=== PATIENT | female | born 1940 | race African-American/Black ===

== ENCOUNTER 2016-06-30 19:20 | Inpatient (IN) | payer MEDICARE, MEDICAID ==
[~2016-06-30] VITALS: Ht 175.3 cm; Wt 104.3 kg
[~2016-06-30 19:20] MED LIST: BENAZEPRIL HCL10 MG ORAL; COUMADIN1 MG ORAL; LYRICA25 MG ORAL; NORCO 5-325 TA1 EAC1 ORAL; NORCO 5-325 TA1 EACH ORAL; PLAVIX75 MG ORAL
[2016-06-30 20:05] VITALS: BP 170/79
--- NOTE | 2016-06-30 21:22 | Emergency Room Report ---
History of Present Illness General Chief Complaint: Generalized Weakness Source: Patient, EMS (GILES EUBANKS M.D.) Present Illness HPI 76 YO F with weakness and fall after left knee buckled. Contrary to multigrapher note, no direct trauma to left knee or shoulder. Patient endorses remote history of fall and right shoulder dislocation but denies direct trauma to either shoulder today. Denies associated/precipitating chest pain, SOB, palpitations, abd pain. Denies recent fever/chills, cough. History of HTN. Denies history of DVT/PE. Denies leg pain/swelling. (GILES EUBANKS M.D.) Allergies: Coded Allergies: NO KNOWN ALLERGIES (Unverified Allergy, Unknown, 04/20/15) Patient History Past Medical History: HTN Past Surgical History: none Pertinent Family History: none Social History: Denies: alcohol use, drug use, smoking Now: No Immunizations: UTD Reviewed Nursing Documentation: PMH: Agreed, PSxH: Agreed (GILES EUBANKS M.D.) Nursing Documentation-PMH Hx Cardiac Problems: Yes - Mild heart attack Hx Hypertension: Yes Hx Cancer: Yes - breast Hx Seizures: Yes (GILES EUBANKS M.D.) Review of Systems All Other Systems: negative except mentioned in HPI (GILES EUBANKS M.D.) Physical Exam Vital Signs Date Time Temp Pulse Resp B/P Pulse Ox O2 Delivery O2 Flow Rate FiO2 06/30/16 19:13 97.5 74 16 139/67 96 Room Air Sp02 EP Interpretation: reviewed, normal General Appearance: normal inspection, well appearing, no apparent distress, alert, GCS 15, non-toxic, obese Head: normocephalic, atraumatic Eyes: bilateral eye EOMI, bilateral eye PERRL ENT: normal ENT inspection, hearing grossly normal, normal voice Neck: normal inspection, full range of motion, supple, no bony tend Respiratory: normal inspection, lungs clear, normal breath sounds, no respiratory distress, no retraction, no wheezing Cardiovascular #1: regular rate, rhythm, no edema Gastrointestinal: normal inspection, normal bowel sounds, non tender, soft, no guarding, no hernia Genitourinary: no CVA tenderness Musculoskeletal: normal inspection, back normal, normal range of motion, non- tender, no calf tenderness, pelvis stable, Val's Sign negative Neurologic: normal inspection, alert, oriented x3, responsive, 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 I attest that this information is true, accurate and complete to the best of my knowledge. I understand that any falsification, omission, or concealment of material fact may subject me to administrative, civil, or criminal liability. This patient warrants hospital admission for extreme of age and has a condition that cannot be treated as outpatient. (GILES EUBANKS M.D.) Diagnostic Impression: Primary Impression: Episode of generalized weakness Additional Impressions: Contusion of left knee Contusion of right shoulder ER Course 76 YO F with weakness, left knee buckling. Atraumatic. VSS. Afebrile. EKG is 1st degree AV block CXR unremarkable for infection No reason for acute imaging at this time as patient did not suffer from acute trauma Labs: Endorsed to Dr Lee for med/surg admission at 922pm (GILES EUBANKS M.D.) ER Course Please see note from Dr. Eubanks. c/o pain L knee and R shoulder when fell. + swelling and tenderness both with decreased ROM. Xrays ordered. Medially possible fx knee. DJD shoulder. Immobilizer ordered. Immobilizer place by tech as well as sling. Improved and neurovasc checked by me. (Zen Christensen M.D.) EKG Diagnostic Results Rate: other - 1st degree AV block (GILES EUBANKS M.D.) Rhythm Strip Diag. Results EP Interpretation: yes Rate: 73 Rhythm: NSR, no PVC's, no ectopy (GILES EUBANKS M.D.) Chest X-Ray Diagnostic Results EP Interpretation: Yes Findings: no consolidation, no effusion, no pneumothorax, other - + cardiomegaly Number of Views: 1 (GILES EUBANKS M.D.) Other X-Ray Diagnostic Results Other X-Ray Diagnostic Results #1: X-Ray Ordered: L knee EP Interpretation: Yes Findings: no dislocation, other - possible medial fracture DJD Number of Views: 3 Other X-Ray Diagnostic Results #2: X-Ray Ordered: R shoulder EP Interpretation: Yes Findings: no fractures, no dislocation, no soft tissue swelling, other - DJD Number of Views: 3 (Zen Christensen M.D.) Last Vital Signs Date Time Temp Pulse Resp B/P Pulse Ox O2 Delivery O2 Flow Rate FiO2 06/30/16 20:05 97.6 73 13 170/79 100 Room Air Status: improved (GILES EUBANKS M.D.) Status: improved (Zen Christensen M.D.) Disposition: ADMITTED INPATIENT Condition: Serious Referrals: NOT CHOSEN IPA/,REFERRING (PCP) GILES EUBANKS M.D. Jun 30, 2016 21:22 Zen Christensen M.D. Jun 30, 2016 22:47
[2016-06-30] MEDS ORDERED: Mylanta II UD 30ml ORAL PRN (22:00)
[2016-06-30] MEDS ORDERED: LORazepam Inj 2mg/ml 1ml IV PRN (22:00)
[2016-06-30] MEDS ORDERED: DuoNeb 0.5-3(2.5)mg/3ml neb HHN PRN (22:00)
[2016-06-30] MEDS ORDERED: Miralax 17gm pkt ORAL PRN (22:00)
[2016-06-30] MEDS ORDERED: Nitroglycerin Subl 0.4mg tab (Bottle Of 25) SL PRN (22:00)
[2016-06-30 22:23] LABS: ALANINE AMINOTRANSFERASE 29 U/L (3-33); ALBUMIN/GLOBULIN RATIO 1.1 (1.0-2.7); ANION GAP 13 (5-15); ASPARTATE AMINO TRANSFERASE 41 U/L (5-40); CALCIUM 10.4 mg/dL (8.6-10.2); CARBON DIOXIDE 32 mEQ/L (20-30); CHLORIDE 86 mEQ/L (98-107); CREATININE 1.7 mg/dL (0.5-0.9); HEMOLYSIS 53; POTASSIUM 4.9 mEQ/L (3.4-4.9); SODIUM 131 mEQ/L (135-145); TOTAL PROTEIN 8.3 g/dL (6.6-8.7); TROPONIN I < 0.30 ng/mL (<=0.30)
[2016-06-30 22:33] LABS: CKMB 2.1 ng/mL (< 3.8)
[2016-06-30] MEDS ORDERED: Morphine Sulfate 2mg/ml Inj IVP ONE (22:45)
[2016-06-30 23:06] VITALS: BP 140/98
[2016-06-30 23:40] LABS: BASOPHILS % (AUTO) 1.1 % (0.0-2.0); EOSINOPHILS % (AUTO) 3.4 % (0.0-3.0); LYMPHOCYTES % (AUTO) 44.5 % (20.0-45.0); MEAN CORPUSCULAR HEMOGLOBIN 32.4 PG (27.0-31.0); MEAN CORPUSCULAR HGB CONC 32.4 G/DL (32.0-36.0); MEAN CORPUSCULAR VOLUME 100 FL (80-99); MEAN PLATELET VOLUME 6.3 FL (6.5-10.1); MONOCYTES % (AUTO) 9.2 % (1.0-10.0); NEUTROPHILS % (AUTO) 41.8 % (45.0-75.0); PLATELET COUNT 187 K/UL (150-450); RED BLOOD COUNT 3.85 M/UL (4.20-5.40); WHITE BLOOD COUNT 5.3 K/UL (4.8-10.8)
[2016-07-01] VITALS (8 sets, daily range): BP systolic 108–146; BP diastolic 44–99
[2016-07-01] MEDS: Morphine Sulfate 2mg/ml Inj IVP PRN ×4 (03:13→20:33)
[2016-07-01] MEDS ORDERED: Morphine Sulfate 4mg/ml Inj IVP ONE (03:45)
[2016-07-01] MEDS: Norco 5mg/325mg tab ORAL PRN (06:53)
[2016-07-01] MEDS ORDERED: Benazepril 10mg tab ORAL SCH (09:00)
[2016-07-01] MEDS: Heparin 5000 units/ml inj SUBQ SCH ×2 (09:00→20:30)
[2016-07-01 11:08] LABS: INR 1.1 (0.9-1.1); PROTHROMBIN TIME 11.7 SEC (9.30-11.50)
[2016-07-01 11:09] LABS: ALANINE AMINOTRANSFERASE 28 U/L (3-33); ALBUMIN/GLOBULIN RATIO 0.9 (1.0-2.7); ANION GAP 13 (5-15); ASPARTATE AMINO TRANSFERASE 49 U/L (5-40); CALCIUM 9.8 mg/dL (8.6-10.2); CARBON DIOXIDE 30 mEQ/L (20-30); CHLORIDE 89 mEQ/L (98-107); CHOLESTEROL 175 mg/dL (< 200); CHOLESTEROL/HDL RATIO 2.6 (3.3-4.4); CREATININE 1.5 mg/dL (0.5-0.9); HEMOLYSIS 360; LDL CHOLESTEROL (CALC.) 67 mg/dL (60-99); POTASSIUM 5.8 mEQ/L (3.4-4.9); SODIUM 132 mEQ/L (135-145); TOTAL PROTEIN 7.3 g/dL (6.6-8.7)
[2016-07-01 11:46] LABS: BASOPHILS % (AUTO) 2.2 % (0.0-2.0); EOSINOPHILS % (AUTO) 3.4 % (0.0-3.0); LYMPHOCYTES % (AUTO) 38.4 % (20.0-45.0); MEAN CORPUSCULAR HEMOGLOBIN 33.2 PG (27.0-31.0); MEAN CORPUSCULAR HGB CONC 33.9 G/DL (32.0-36.0); MEAN CORPUSCULAR VOLUME 98 FL (80-99); MEAN PLATELET VOLUME 6.9 FL (6.5-10.1); MONOCYTES % (AUTO) 9.5 % (1.0-10.0); NEUTROPHILS % (AUTO) 46.5 % (45.0-75.0); PLATELET COUNT 177 K/UL (150-450); RED BLOOD COUNT 3.77 M/UL (4.20-5.40); RED CELL DISTRIBUTION WIDTH 11.8 % (11.6-14.8); WHITE BLOOD COUNT 3.9 K/UL (4.8-10.8)
--- NOTE | 2016-07-01 13:29 | Neurology Progress Note ---
Objective Physical Exam Last Vital Signs Date Time Temp Pulse Resp B/P Pulse Ox O2 Delivery O2 Flow Rate FiO2 07/01/16 11:24 97.9 64 18 145/79 96 Room Air Laboratory Tests Test 06/30/16 21:30 06/30/16 23:25 07/01/16 10:25 07/01/16 11:35 Sodium Level 131 mEQ/L (135-145) L 132 mEQ/L (135-145) L Potassium Level 4.9 mEQ/L (3.4-4.9) 5.8 mEQ/L (3.4-4.9) H Chloride Level 86 mEQ/L (98-107) L 89 mEQ/L (98-107) L Carbon Dioxide Level 32 mEQ/L (20-30) H 30 mEQ/L (20-30) Anion Gap 13 (5-15) 13 (5-15) Blood Urea Nitrogen 44 mg/dL (7-23) H 41 mg/dL (7-23) H Creatinine 1.7 mg/dL (0.5-0.9) H 1.5 mg/dL (0.5-0.9) H Estimat Glomerular Filtration Rate mL/min (>60) mL/min (>60) Glucose Level 96 mg/dL (74-106) 117 mg/dL (74-106) H Calcium Level 10.4 mg/dL (8.6-10.2) H 9.8 mg/dL (8.6-10.2) Total Bilirubin 0.4 mg/dL (0.0-1.2) 0.3 mg/dL (0.0-1.2) Aspartate Amino Transf (AST/SGOT) 41 U/L (5-40) H 49 U/L (5-40) H Alanine Aminotransferase (ALT/SGPT) 29 U/L (3-33) 28 U/L (3-33) Alkaline Phosphatase 126 U/L (35-104) H 106 U/L (35-104) H Total Creatine Kinase 115 U/L (26-140) Creatine Kinase MB 2.1 ng/mL (< 3.8) Creatine Kinase MB Relative Index 1.8 Troponin I < 0.30 ng/mL (<=0.30) Total Protein 8.3 g/dL (6.6-8.7) 7.3 g/dL (6.6-8.7) Albumin 4.5 g/dL (3.5-5.2) 3.5 g/dL (3.5-5.2) Globulin 3.8 g/dL 3.8 g/dL Albumin/Globulin Ratio 1.1 (1.0-2.7) 0.9 (1.0-2.7) L White Blood Count 5.3 K/UL (4.8-10.8) 3.9 K/UL (4.8-10.8) L Red Blood Count 3.85 M/UL (4.20-5.40) L 3.77 M/UL (4.20-5.40) L Hemoglobin 12.5 G/DL (12.0-16.0) 12.5 G/DL (12.0-16.0) Hematocrit 38.5 % (37.0-47.0) 37.0 % (37.0-47.0) Mean Corpuscular Volume 100 FL (80-99) H 98 FL (80-99) Mean Corpuscular Hemoglobin 32.4 PG (27.0-31.0) H 33.2 PG (27.0-31.0) H Mean Corpuscular Hemoglobin Concent 32.4 G/DL (32.0-36.0) 33.9 G/DL (32.0-36.0) Red Cell Distribution Width 12.0 % (11.6-14.8) 11.8 % (11.6-14.8) Platelet Count 187 K/UL (150-450) 177 K/UL (150-450) Mean Platelet Volume 6.3 FL (6.5-10.1) L 6.9 FL (6.5-10.1) Neutrophils (%) (Auto) 41.8 % (45.0-75.0) L 46.5 % (45.0-75.0) Lymphocytes (%) (Auto) 44.5 % (20.0-45.0) 38.4 % (20.0-45.0) Monocytes (%) (Auto) 9.2 % (1.0-10.0) 9.5 % (1.0-10.0) Eosinophils (%) (Auto) 3.4 % (0.0-3.0) H 3.4 % (0.0-3.0) H Basophils (%) (Auto) 1.1 % (0.0-2.0) 2.2 % (0.0-2.0) H Prothrombin Time 11.7 SEC (9.30-11.50) H Prothromb Time International Ratio 1.1 (0.9-1.1) Activated Partial Thromboplast Time 21 SEC (23-33) L Triglycerides Level 203 mg/dL (< 150) H Cholesterol Level 175 mg/dL (< 200) LDL Cholesterol 67 mg/dL (60-99) HDL Cholesterol 67 mg/dL (> 60) H Cholesterol/HDL Ratio 2.6 (3.3-4.4) L Thyroid Stimulating Hormone (TSH) 1.550 uIU/mL (0.300-4.500) Impression/Recommendations Problems: (1) recent onset R leg pain/weakness. r/o lumbar radiculopathy/lumbar-sacral plexopathy (2) r/o L knee fx (3) chronic generalised sz disorder (4) s/p multiple mechanical fall Status: not improved Recommendations #[id number] DENA KNUTSON Jul 01, 2016 13:29
--- NOTE | 2016-07-01 13:50 | Diagnostic Imaging Report ---
Indications: Chest pain Technique: Portable AP chest Findings: Comparison: 04/20/2015 Cardiac silhouette remains mildly enlarged. Pulmonary vasculature remains within normal limits. Lungs and pleura remain clear. Surgical clips again noted in left axilla.. IMPRESSION: No evidence of acute disease, unchanged Stable chronic changes as described
[2016-07-01] MEDS: Phenytoin 100mg cap ORAL SCH ×2 (14:22→20:29)
--- NOTE | 2016-07-01 14:34 | Diagnostic Imaging Report ---
Indications: Left knee injury, pain Technique: 3 views left knee. Findings: Comparison: None No fracture, dislocation, joint space widening or effusion , surrounding soft tissue swelling/foreign body/other abnormality, or other acute changes are identified. Curvilinear calcific density adjacent to distal femoral medial condyle. Osteophytes margins of patellofemoral and knee joint spaces. Lateral knee joint compartment narrowed. IMPRESSION: No evidence of acute injury. Matt-Stieda lesion Osteoarthritis
--- NOTE | 2016-07-01 14:40 | Diagnostic Imaging Report ---
Indications: Right shoulder trauma, pain Technique: 3 views right shoulder Findings: Comparison: 04/20/2015 Irregular lucency now traverses the base of the greater tuberosity of the right humeral head on 2 of 3 views. This was not seen previously. Suggestion of associated focal cortical discontinuity. No additional fracture, dislocation, joint space widening or other acute change identified. IMPRESSION: Suggestion of nondisplaced fracture through base of right humeral head greater tuberosity, apparently closed Findings discussed with Dr. Us, ER physician, by telephone at time of this dictation
--- NOTE | 2016-07-01 14:52 | Consultation ---
Consult Note Consult Note asked to eval for renal failure- 76 YO F with weakness and fall after left knee buckled. Contrary to research consultant note, no direct trauma to left knee or shoulder. Patient endorses remote history of fall and right shoulder dislocation but denies direct trauma to either shoulder today. Denies associated/precipitating chest pain, SOB, palpitations, abd pain. Denies recent fever/chills, cough. History of HTN. Denies history of DVT/PE. Denies leg pain/swelling. . Assessment/Plan Renal failure and hyperkalemia due to pre renal azotemia ? Lotesin induced HyperKalemia Hydrate- Stop Lotensin- Monitor renal parameters- Avoid Nephrotoxics- EDSON MOODY Jul 01, 2016 14:52
[2016-07-01] MEDS ORDERED: D5 1/2NS 1,000 ML IV SCH (15:00)
[2016-07-01] MEDS ORDERED: D5NS 1,000 ML IV SCH (15:30)
--- NOTE | 2016-07-01 19:55 | History & Physical ---
History and Physical History & Physicial Dictated for Int Med-Dr Lee no. [id number]. BECKI SALINAS Jul 01, 2016 19:55
--- NOTE | 2016-07-01 20:14 | Cardiology Report ---
APPROVED REPORT EKG Measurement Heart [id number] Sinus rhythm with 1st degree AV block Left axis deviation Abnormal ECG
--- NOTE | 2016-07-01 20:45 | Cardiology Report ---
APPROVED REPORT EXAM: Two-dimensional and M-mode echocardiogram with Doppler and color Doppler. INDICATION Left ventricular function M-Mode DIMENSIONS IVSd1.1 (0.7-1.1cm)Left Atrium (MM)3.9 (1.6-4.0cm) LVDd4.7 (3.5-5.6cm)Aortic Root3.0 (2.0-3.7cm) PWd1.1 (0.7-1.1cm)Aortic Cusp Exc.1.8 (1.5-2.0cm) LVDs3.2 (2.5-4.0cm) PWs1.1 cm Normal left ventricular chamber size, systolic function and wall motion. Left ventricular ejection fraction estimated to be 55-60%. No evidence of left ventricular hypertrophy. No evidence of pericardial fat or effusion. All other cardiac chamber sizes are within normal limits. Focal aortic valve sclerosis with adequate cusp excursion Thickened mitral valve leaflets with normal excursion. Mitral annulus and aortic root calcification. Pulmonic valve not well visualized. Normal tricuspid valve structure. IVC is normal in size with physiologic collapse. A color flow and spectral Doppler study was performed and revealed: No aortic regurgitation. Mild mitral regurgitation. Left ventricular diastolic dysfunction grade 1. Moderate tricuspid regurgitation. Tricuspid systolic velocities suggests peak right ventricular systolic pressure of 26 mmHg
--- NOTE | 2016-07-01 21:07 | Consultation ---
DATE OF CONSULTATION: 07/01/2016 NEUROLOGICAL CONSULTATION CONSULTING PHYSICIAN: Hernan Yanes M.D. REQUESTING PHYSICIAN: Joe Lee M.D. HISTORY OF PRESENT ILLNESS: The patient is a 76-year-old female, seen in neurological consultation to evaluate the recent onset of severe left lower extremity pain and weakness causing several falls. Prior to admission, the patient tripped and fell, she was unable to get up, and her son, who was witnessed called paramedics. On arrival, her vital signs were stable. Blood pressure 139/87, heart rate of 74, and respirations 16. The patient was found to be sitting in a chair, stating that she got weak and fell. She was fully alert. [facility] this facility. On arrival, the patient is complaining of weakness after her left knee buckled up. Her vital signs on admission were stable. EKG revealed first degree AV block. Chest x-ray was unremarkable except for presence of cardiomegaly. A prominent revascularization may represent mild congestive heart failure. There was a x-ray indicating anterior dislocation of the right shoulder, dates back to 2014. The patient is suspected to have fracture of left knee and left leg was placed in an immobilizer and right shoulder was placed in a sling. An x-ray of left knee revealed possible medial fracture and resultant degenerative joint disease. X-ray of the right shoulder revealed no fracture, no dislocation, and no soft tissue swelling. Following admission to present, the patient remained with the pain in the left lower extremity and in the right shoulder. PAST MEDICAL HISTORY: The patient has a history of chronic generalized seizure disorder for several years, with recurrence of two to three episodes per year while she is maintained on Dilantin. She has a history of coronary artery disease, had a mild heart attack, history of degenerative joint disease, tension headaches, history of hypoglycemic episode, and has a breast cancer with mastectomy on the left with no recurrence. MEDICATIONS: Treatment prior to admission included benazepril, Plavix, [place] p.r.n., Lyrica 25 mg t.i.d., and warfarin currently for deep vein thrombosis of the lower extremities. The patient is on Dilantin (the patient is unable to recall the dose). ALLERGIES: None reported. SOCIAL HISTORY: She lives at home with her son. Able to ambulate using cane. No alcohol. No drug abuse. Nonsmoker. REVIEW OF SYSTEMS: Weakness, aches, and pains in her left lower extremity predominantly proximal knee and thigh region, right shoulder pain, and unstable gait. Pain and weakness in the left lower extremity started three weeks ago and frequent falls occurred within the last three weeks. Denies headache. Denies chest pain or palpitations. No respiratory problems. No abdominal pain or discomfort. PHYSICAL EXAMINATION: GENERAL: A well-developed, moderately obese female, not in acute distress, lying comfortably in bed, and covered with few blankets. VITAL SIGNS: Her blood pressure was 145/79 and temperature 97.9 degrees. HEENT: Head normocephalic. No evidence of trauma. Eyes, ears, and throat are clear. NECK: Supple. No meningeal signs. EXTREMITIES: There is acute tenderness on palpation in the right shoulder, but also left knee and left hip. There is significant pain when attempting to lift left lower extremity, pain along the left leg. There is a brace on the left lower extremity and sling in the right shoulder. NEUROLOGIC: Peripheral pulses 1+ symmetric. MENTAL STATUS: The patient is alert and oriented x3 with no evidence of aphasia or apraxia. Speech is slow and quiet, but coherent. CRANIAL NERVE II: Pupils are both responding to light and accommodation. Extraocular movements intact. No nystagmus. CRANIAL NERVE V: Normal corneal responses. No facial asymmetry. CRANIAL NERVE VIII: Slight decreased hearing. CRANIAL NERVES IX THROUGH XII: Tongue is in midline. Symmetric palate elevation. MOTOR EXAMINATION: Motor examination revealed normal muscle tone. Strength distally in both upper extremities 5/5, but proximal on the right limited by the pain. Normal strength and muscle tone in the right lower extremity. The patient was unable to lift the left lower extremity due to pain and probably weakness. Her left foot dorsiflexion and extension 4/5. Deep tendon reflexes depressed bilaterally. Unable to completely test on the left leg due to pain. No pathological responses. SENSORY EXAMINATION: Reduced response to pin stimulation in the distal aspect of her left leg, inconsistent. Gait not tested. The patient was unable to sit or stand without assistance. IMPRESSION: 1. This is a 76-year-old female with a recent onset of pain and weakness along the left lower extremity, resulting in multiple mechanical falls. Rule out left-sided lumbar radiculopathy L4-L5 level. Rule out a mass or lesion in the abdomen and pelvis area with referred pain (history of breast cancer.) 2. Chronic generalized seizure disorder, well controlled. 3. Obesity. 4. Hypertension. 5. Arthralgia. 6. Status post right shoulder dislocation two years ago. 7. History of deep venous thrombosis of the lower extremities. RECOMMENDATION: 1. MRI of lumbosacral spine, if necessary we will add abdomen and pelvis CT scan to rule out mass or lesion. 2. Restart Dilantin 300 mg daily, the patient will clarify precise dose, we will check blood level of Dilantin for baseline. 3. Orthopedic assessment regarding possible left knee fracture. 4. Continue with the pain management and also get a PT and OT assessment. We will follow with you. Thank you for allowing me to see this interesting patient in neurological consultation. Hernan Yanes M.D. DR: KEATON JOB#: [id number] CC:
[2016-07-02] VITALS (7 sets, daily range): BP systolic 119–165; BP diastolic 59–81
--- NOTE | 2016-07-02 01:47 | History and Physical Report ---
DATE OF ADMISSION: 07/01/2016 CHIEF COMPLAINT: This is a 76-year-old female, presents with a chief complaint of mechanical fall. HISTORY OF PRESENT ILLNESS: The patient states that she got up to go to the restroom on 04/30/2016. The patient states her left knee gave out. The left knee buckled and she fell to the floor. The patient now complains of left knee pain and right shoulder pain. The patient presented to [facility]. The patient is admitted for weakness of bilateral lower extremities. REVIEW OF SYSTEMS: Constitutional: The patient denies weight loss or weight gain. The patient denies fevers or chills. HEENT: The patient denies ear or throat pain. Cardiovascular: The patient denies palpitations or chest pain. Chest: The patient denies wheeze or shortness of breath. Abdomen: The patient denies nausea, vomiting, diarrhea, or constipation. Genitourinary: The patient denies dysuria or increased frequency of urination. Neuromuscular: The patient denies seizures or generalized weakness. PAST MEDICAL HISTORY: Significant for: 1. Hypertension. 2. History of left breast cancer, status post mastectomy and chemotherapy. PAST SURGICAL HISTORY: Significant for: 1. Left mastectomy. 2. Appendectomy. CURRENT MEDICATIONS: 1. Benazepril 10 mg one tablet p.o. daily. 2. Plavix 75 mg one tablet p.o. daily. 3. [place] 5/325 mg one tablet p.o. q.4 hours p.r.n. 4. Lyrica 25 mg one tablet p.o. three times daily. 5. Coumadin 1 mg one tablet p.o. daily. ALLERGIES: No known drug allergies. SOCIAL HISTORY: The patient is and lives with her grandson. The patient denies tobacco or alcohol use. PHYSICAL EXAMINATION: VITAL SIGNS: Temperature is 96.7 degrees, pulse 74, respirations 18, and blood pressure 146/72. GENERAL: The patient is a well-developed and well-nourished, female, in no apparent distress. HEENT: Eyes, pupils are equal and responsive to light and accommodation. Extraocular movements are intact. NECK: Supple without lymphadenopathy. CHEST: Lungs are clear to auscultation bilaterally without wheezes or rales. CARDIOVASCULAR: Regular rhythm and rate. S1 and S2. No murmurs, rubs, or gallops. ABDOMEN: Soft, nontender, and nondistended. Positive bowel sounds. No evidence of hepatosplenomegaly. Currently no rebound, or guarding noted. EXTREMITIES: Negative for clubbing, cyanosis, or edema. RECTAL/GENITAL: Refused. NEUROLOGICALLY: Cranial nerves II through XII are grossly intact without focal deficits. Motor strength is 5/5 bilaterally. Deep tendon reflexes are 2+ plantar. LABORATORY STUDIES: WBC is 5.2, hemoglobin 12.5, hematocrit 38.5, and platelets 187,000. Sodium is 131, potassium 4.9, chloride 86, CO2 32, BUN 44, creatinine 1.7, and glucose 96. DIAGNOSTIC DATA: An x-ray of the left knee failed to demonstrate fracture or osseous abnormalities. An x-ray of the right shoulder showed nondisplaced fracture of the right humeral head. ASSESSMENT: This is a 76-year-old female with: 1. Right humerus fracture. 2. Left leg weakness. 3. Right shoulder pain. 4. Left knee pain. 5. Hypertension. 6. Renal insufficiency. 7. Coronary artery disease. TREATMENT: 1. Right humerus fracture. An orthopedic consultation will be obtained with Dr. Angel Keen. The patient may require surgical intervention. It is nondisplaced. 2. Left leg weakness/left knee pain. An x-ray was negative for fracture. An orthopedic consultation will be obtained with Dr. Keen. Physical therapy has been order. 3. Hypertension. Continue Lotensin as above. 4. Coronary artery disease. 5. Renal insufficiency. The patient is currently receiving intravenous fluids. Brandt Lubin M.D. DR: aMrla JOB#: [id number] CC:
[2016-07-02 06:35] LABS: LYMPHOCYTES % (AUTO) 34.6 % (20.0-45.0); MEAN CORPUSCULAR HGB CONC 33.1 G/DL (32.0-36.0); MEAN CORPUSCULAR VOLUME 100 FL (80-99); MEAN PLATELET VOLUME 7.4 FL (6.5-10.1); MONOCYTES % (AUTO) 10.4 % (1.0-10.0); PLATELET COUNT 169 K/UL (150-450); RED BLOOD COUNT 3.58 M/UL (4.20-5.40); RED CELL DISTRIBUTION WIDTH 11.9 % (11.6-14.8); WHITE BLOOD COUNT 5.5 K/UL (4.8-10.8)
[2016-07-02 06:50] LABS: ALANINE AMINOTRANSFERASE 23 U/L (3-33); ALBUMIN/GLOBULIN RATIO 1.2 (1.0-2.7); ANION GAP 15 (5-15); ASPARTATE AMINO TRANSFERASE 29 U/L (5-40); CALCIUM 9.7 mg/dL (8.6-10.2); CARBON DIOXIDE 26 mEQ/L (20-30); CHLORIDE 95 mEQ/L (98-107); CREATININE 1.3 mg/dL (0.5-0.9); HEMOLYSIS 13; POTASSIUM 4.7 mEQ/L (3.4-4.9); SODIUM 136 mEQ/L (135-145); TOTAL PROTEIN 6.6 g/dL (6.6-8.7)
[2016-07-02 07:21] LABS: CRP QUANT 2.4 mg/dL (< 0.5); MAGNESIUM 1.6 mg/dL (1.7-2.5); PHOSPHORUS 3.4 mg/dL (2.5-4.8); URIC ACID 7.8 mg/dL (3.0-7.5)
[2016-07-02 07:50] LABS: HEMOGLOBIN A1C 5.4 % (< 6.0)
[2016-07-02] MEDS: Phenytoin 100mg cap ORAL SCH ×2 (08:48→21:31)
[2016-07-02] MEDS: Heparin 5000 units/ml inj SUBQ SCH ×2 (08:49→21:33)
[2016-07-02] MEDS: Norco 5mg/325mg tab ORAL PRN (08:52)
--- NOTE | 2016-07-02 11:14 | General Progress Note ---
Assessment/Plan Status: stable Assessment/Plan status: Renal failure and hyperkalemia due to pre renal azotemia IMPROVED ? Lotesin induced HyperKalemia Hydrate- Stop Lotensin- start Norvasc Monitor renal parameters- Avoid Nephrotoxics- Subjective ROS Limited/Unobtainable: No Constitutional: Reports: malaise, weakness Allergies: Coded Allergies: NO KNOWN ALLERGIES (Unverified Allergy, Unknown, 04/20/15) Objective Last 24 Hour Vital Signs Date Time Temp Pulse Resp B/P Pulse Ox O2 Delivery O2 Flow Rate FiO2 07/02/16 09:51 96.3 07/02/16 08:48 73 131/66 07/02/16 08:00 96.3 73 18 131/66 97 Room Air 07/02/16 04:36 97.5 75 20 132/59 93 Room Air 07/02/16 00:00 97.3 78 20 119/74 99 Room Air 07/01/16 21:03 97.2 07/01/16 19:05 69 137/58 07/01/16 19:00 97.2 65 20 145/68 93 Room Air 07/01/16 16:00 98.6 69 20 137/58 95 Room Air 07/01/16 11:24 97.9 64 18 145/79 96 Room Air Intake and Output 07/01/16 07/02/16 19:00 07:00 Intake Total 680 ml 860 ml Output Total 1 ml Balance 679 ml 860 ml Intake Oral 480 ml 360 ml IV Total 200 ml 500 ml Output Urine Total 1 ml # Voids 4 8 # Bowel Movements 2 Laboratory Tests 07/01/16 11:35: White Blood Count 3.9L, Red Blood Count 3.77L, Hemoglobin 12.5, Hematocrit 37.0 , Mean Corpuscular Volume 98, Mean Corpuscular Hemoglobin 33.2H, Mean Corpuscular Hemoglobin Concent 33.9, Red Cell Distribution Width 11.8, Platelet Count 177, Mean Platelet Volume 6.9, Neutrophils (%) (Auto) 46.5, Lymphocytes (% ) (Auto) 38.4, Monocytes (%) (Auto) 9.5, Eosinophils (%) (Auto) 3.4H, Basophils (%) (Auto) 2.2H 07/02/16 05:35: White Blood Count 5.5, Red Blood Count 3.58L, Hemoglobin 11.8L, Hematocrit 35.7L , Mean Corpuscular Volume 100H, Mean Corpuscular Hemoglobin 33.0H, Mean Corpuscular Hemoglobin Concent 33.1, Red Cell Distribution Width 11.9, Platelet Count 169, Mean Platelet Volume 7.4, Neutrophils (%) (Auto) 51.0, Lymphocytes (% ) (Auto) 34.6, Monocytes (%) (Auto) 10.4H, Eosinophils (%) (Auto) 3.0, Basophils (%) (Auto) 1.0, Sodium Level 136, Potassium Level 4.7, Chloride Level 95L, Carbon Dioxide Level 26, Anion Gap 15, Blood Urea Nitrogen 31H, Creatinine 1.3H, Estimat Glomerular Filtration Rate , Glucose Level 120H, Hemoglobin A1c 5.4, Uric Acid 7.8H, Calcium Level 9.7, Phosphorus Level 3.4, Magnesium Level 1.6L, Total Bilirubin 0.3, Gamma Glutamyl Transpeptidase 192H, Aspartate Amino Transf (AST/SGOT) 29, Alanine Aminotransferase (ALT/SGPT) 23, Alkaline Phosphatase 114H, Total Creatine Kinase 62, C-Reactive Protein, Quantitative 2.4H, Pro-B-Type Natriuretic Peptide 75, Total Protein 6.6, Albumin 3.6, Globulin 3.0, Albumin/Globulin Ratio 1.2, Phenytoin (Dilantin) Level 18.3 Height (Feet): 5 Height (Inches): 9.00 Weight (Pounds): 230 General Appearance: no apparent distress Objective other PE not changed- no signs of CHF EDSON MOODY Jul 02, 2016 11:14
[2016-07-02] MEDS: Morphine Sulfate 2mg/ml Inj IVP PRN ×3 (12:22→21:31)
[2016-07-02] MEDS: Magnesium Oxide 400mg tab ORAL SCH ×2 (13:11→19:07)
[2016-07-02] MEDS: Allopurinol 100mg Tab ORAL SCH (13:12)
--- NOTE | 2016-07-02 16:02 | Diagnostic Imaging Report ---
Indication: Back pain Technique: MRI examination of the Lumbar spine was performed in a 1.5 Enriqueta magnet. Sequences obtained include sagittal and axial T1 and T2 fast spin echo, and sagittal STIR. No IV gadolinium was given Comparison: none Findings: There is mild anterolisthesis L5-S1. Cysts are seen with some desiccation of intervertebral disc. There is no evidence of a pars interarticularis defect. Hypertrophied facets are demonstrated. There is mild left foraminal stenosis at this level. L4-5 demonstrates mild disc desiccation and facet arthropathy. There is no disc herniation. There is mild bilateral foraminal stenosis. L3-4 demonstrates mild disc desiccation and facet arthropathy. There is narrowing of the neural foramen bilaterally. L2-3 demonstrates mild facet arthropathy with bilateral foraminal stenosis. L1-2 is unremarkable. Conus medullaris appears normal and is seen at L1. Bone marrow signal is slightly heterogeneous. There is no evidence of fracture, bone marrow contusion, spinal ligament abnormalities or abnormal fluid collections. Incidentally the distal part of the common bile duct is seen on this examination and appears quite prominent. Impression: Degenerative spondylosis as described above. Incidental prominence of the distal CBD. Please correlate clinically and evaluate further as needed.
--- NOTE | 2016-07-02 20:09 | Internal Med Progress Note ---
Subjective Date of Service: Jul 02, 2016 Physician Name Becki Salinas Attending Physician Joe Lee MD Current Medications Medications (Trade) Dose Ordered Sig/Ingrid Route PRN Reason Start Time Stop Time Status Last Admin Dose Admin Acetaminophen (Tylenol) 650 mg Q4H PRN ORAL fever 06/30/16 22:00 07/30/16 21:59 07/02/16 14:27 Acetaminophen/ Hydrocodone Bitart ([place] 5/325) 1 tab Q4H PRN ORAL For Pain 06/30/16 22:00 07/07/16 21:59 07/02/16 08:52 Albuterol/ Ipratropium (DuoNeb 0.5-3(2.5)mg/3ml) 3 ml Q4H PRN HHN Shortness of Breath 06/30/16 22:00 07/05/16 21:59 Allopurinol (Zyloprim) 200 mg DAILY ORAL 07/02/16 12:30 08/01/16 12:29 07/02/16 13:12 Amlodipine Besylate (Norvasc) 2.5 mg BID ORAL 07/01/16 18:00 07/31/16 17:59 07/02/16 19:07 Clonidine HCl (Catapres) 0.1 mg Q4H PRN ORAL For High Blood Pressure 06/30/16 22:00 07/30/16 21:59 Clopidogrel Bisulfate (Plavix) 75 mg DAILY ORAL 07/01/16 09:00 07/31/16 08:59 07/02/16 08:47 Dextrose (Dextrose 50%) STAT PRN IV Hypoglycemia 06/30/16 22:00 07/30/16 21:59 Heparin Sodium (Porcine) (Heparin 5000 units/ml) 5,000 units EVERY 12 HOURS SUBQ 07/01/16 09:00 07/31/16 08:59 07/02/16 08:49 Lorazepam (Ativan 2mg/ml 1ml) 0.5 mg Q4H PRN IV For Anxiety 06/30/16 22:00 07/07/16 21:59 Magnesium Oxide (Mag-Ox 400mg) 400 mg THREE TIMES A DAY ORAL 07/02/16 13:00 08/01/16 12:59 07/02/16 19:07 Morphine Sulfate (Morphine Sulfate) 1 mg Q4H PRN IVP For Pain 7-10 06/30/16 22:00 07/07/16 21:59 07/02/16 16:56 Nitroglycerin (Ntg) 0.4 mg Q5M X 3 DOSES PRN SL Prn Chest Pain 06/30/16 22:00 07/30/16 21:59 Ondansetron HCl (Zofran) 4 mg Q6H PRN IVP Nausea & Vomiting 06/30/16 22:00 07/30/16 21:59 Pantoprazole (Protonix) 40 mg DAILY ORAL 07/01/16 16:00 07/31/16 15:59 07/02/16 08:48 Phenytoin (Dilantin) 200 mg EVERY 12 HOURS ORAL 07/01/16 13:15 07/31/16 13:14 07/02/16 08:48 Polyethylene Glycol (Miralax) 17 gm HSPRN PRN ORAL Constipation 06/30/16 22:00 07/30/16 21:59 07/01/16 14:25 Temazepam (Restoril) 15 mg HSPRN PRN ORAL Insomnia 06/30/16 22:00 07/07/16 21:59 07/01/16 23:58 Allergies: Coded Allergies: NO KNOWN ALLERGIES (Unverified Allergy, Unknown, 04/20/15) ROS Limited/Unobtainable: No Constitutional: Reports: no symptoms HEENT: Reports: no symptoms Cardiovascular: Reports: no symptoms Respiratory: Reports: no symptoms Gastrointestinal/Abdominal: Reports: no symptoms Genitourinary: Reports: no symptoms Neurologic/Psychiatric: Reports: no symptoms Subjective 76 YO F admitted for left leg weakness and mechanical fall. Now right humerus fracture. Cover for Int Felix-Dr Lee Objective Last Vital Signs Date Time Temp Pulse Resp B/P Pulse Ox O2 Delivery O2 Flow Rate FiO2 07/02/16 19:07 81 142/76 07/02/16 17:26 97.9 07/02/16 16:00 22 96 Room Air General Appearance: WD/WN, no apparent distress, alert EENT: PERRL/EOMI, normal ENT inspection Neck: non-tender, normal alignment, supple Cardiovascular: normal peripheral pulses, normal rate, regular rhythm, no gallop/murmur, no JVD Respiratory/Chest: chest wall non-tender, lungs clear, normal breath sounds, no respiratory distress, no accessory muscle use Abdomen: normal bowel sounds, non tender, soft, no organomegaly, no mass Extremities: other - right shoulder sling Neurologic: psychologist II-XII grossly normal, no motor/sensory deficits Skin: normal pigmentation, warm/dry Laboratory Tests Test 07/02/16 05:35 White Blood Count 5.5 K/UL (4.8-10.8) Red Blood Count 3.58 M/UL (4.20-5.40) L Hemoglobin 11.8 G/DL (12.0-16.0) L Hematocrit 35.7 % (37.0-47.0) L Mean Corpuscular Volume 100 FL (80-99) H Mean Corpuscular Hemoglobin 33.0 PG (27.0-31.0) H Mean Corpuscular Hemoglobin Concent 33.1 G/DL (32.0-36.0) Red Cell Distribution Width 11.9 % (11.6-14.8) Platelet Count 169 K/UL (150-450) Mean Platelet Volume 7.4 FL (6.5-10.1) Neutrophils (%) (Auto) 51.0 % (45.0-75.0) Lymphocytes (%) (Auto) 34.6 % (20.0-45.0) Monocytes (%) (Auto) 10.4 % (1.0-10.0) H Eosinophils (%) (Auto) 3.0 % (0.0-3.0) Basophils (%) (Auto) 1.0 % (0.0-2.0) Sodium Level 136 mEQ/L (135-145) Potassium Level 4.7 mEQ/L (3.4-4.9) Chloride Level 95 mEQ/L (98-107) L Carbon Dioxide Level 26 mEQ/L (20-30) Anion Gap 15 (5-15) Blood Urea Nitrogen 31 mg/dL (7-23) H Creatinine 1.3 mg/dL (0.5-0.9) H Estimat Glomerular Filtration Rate mL/min (>60) Glucose Level 120 mg/dL (74-106) H Hemoglobin A1c 5.4 % (< 6.0) Uric Acid 7.8 mg/dL (3.0-7.5) H Calcium Level 9.7 mg/dL (8.6-10.2) Phosphorus Level 3.4 mg/dL (2.5-4.8) Magnesium Level 1.6 mg/dL (1.7-2.5) L Total Bilirubin 0.3 mg/dL (0.0-1.2) Gamma Glutamyl Transpeptidase 192 U/L (5-36) H Aspartate Amino Transf (AST/SGOT) 29 U/L (5-40) Alanine Aminotransferase (ALT/SGPT) 23 U/L (3-33) Alkaline Phosphatase 114 U/L (35-104) H Total Creatine Kinase 62 U/L (26-140) C-Reactive Protein, Quantitative 2.4 mg/dL (< 0.5) H Pro-B-Type Natriuretic Peptide 75 pg/mL (0-450) Total Protein 6.6 g/dL (6.6-8.7) Albumin 3.6 g/dL (3.5-5.2) Globulin 3.0 g/dL Albumin/Globulin Ratio 1.2 (1.0-2.7) Phenytoin (Dilantin) Level 18.3 ug/mL (10-20) Intake and Output 07/01/16 07/02/16 19:00 07:00 Intake Total 680 ml 860 ml Output Total 1 ml Balance 679 ml 860 ml Intake Oral 480 ml 360 ml IV Total 200 ml 500 ml Output Urine Total 1 ml # Voids 4 8 # Bowel Movements 2 Assessment/Plan Problem List: (1) Right humeral fracture Assessment & Plan: Non displaced. See ortho note. Non surgical. Cont shoulder sling. (2) Left leg weakness (3) Left knee pain (4) Renal insufficiency (5) HTN (hypertension) Assessment & Plan: Cont norvasc. (6) CAD (coronary artery disease) (7) Seizure disorder Assessment & Plan: See neuro note. Cont dilantin Status: progressing BECKI SALINAS Jul 02, 2016 20:09
[2016-07-03] MEDS: Morphine Sulfate 2mg/ml Inj IVP PRN ×2 (03:56→14:32)
[2016-07-03 04:19] VITALS: BP 146/76
--- NOTE | 2016-07-03 04:37 | Consultation ---
DATE OF CONSULTATION: 07/02/2016 REQUESTING PHYSICIAN: Joe Lee M.D. CHIEF COMPLAINT: Right shoulder pain. HISTORY OF PRESENT ILLNESS: The patient is a pleasant 76-year-old female, who sustained general after feeling some weakness in the left leg. She has a history of previous falls. In the past reports that she had a shoulder dislocation which was reduced. She is now here. She does feel better over the last couple of days. PHYSICAL EXAMINATION: GENERAL: Shows the patient is resting comfortably in bed. She has a sling in place. VITAL SIGNS: Afebrile with stable vital signs. EXTREMITIES: Right shoulder examination has some pain with internal and external rotation. Neurovascular is normal. No pain in the elbow, forearm, or wrist. DIAGNOSTIC DATA: Imaging studies show what appears to be possibly nondisplaced fracture of greater tuberosity fracture. ASSESSMENT: 1. Right shoulder rotator cuff arthropathy. 2. Right shoulder possible nondisplaced greater tuberosity fracture. 3. History of shoulder dislocation. DISCUSSION: At this point, she can use the sling, active range of motion and she can be weightbearing as tolerated as long as she is having pain and she does feel better. She does not need any surgery but clearly that she does need followup. I will see her back in a couple of weeks. I have given her my information, got the information to make an appointment or she can follow up with her orthopedic surgeon Lincoln Keen M.D. DR: Terri JOB#: [id number] CC: ANDIE
[2016-07-03] MEDS: Norco 5mg/325mg tab ORAL PRN ×2 (06:53→11:57)
[2016-07-03 07:26] LABS: BASOPHILS % (AUTO) 0.7 % (0.0-2.0); EOSINOPHILS % (AUTO) 2.4 % (0.0-3.0); LYMPHOCYTES % (AUTO) 32.8 % (20.0-45.0); MEAN CORPUSCULAR HEMOGLOBIN 33.1 PG (27.0-31.0); MEAN CORPUSCULAR HGB CONC 33.2 G/DL (32.0-36.0); MEAN CORPUSCULAR VOLUME 100 FL (80-99); MEAN PLATELET VOLUME 7.6 FL (6.5-10.1); MONOCYTES % (AUTO) 13.2 % (1.0-10.0); NEUTROPHILS % (AUTO) 50.9 % (45.0-75.0); PLATELET COUNT 169 K/UL (150-450); RED BLOOD COUNT 3.65 M/UL (4.20-5.40); RED CELL DISTRIBUTION WIDTH 12.1 % (11.6-14.8); WHITE BLOOD COUNT 4.6 K/UL (4.8-10.8)
[2016-07-03 07:28] LABS: TROPONIN I < 0.30 ng/mL (<=0.30)
[2016-07-03 08:00] VITALS: BP 168/85
[2016-07-03 08:07] LABS: ALANINE AMINOTRANSFERASE 21 U/L (3-33); ALBUMIN/GLOBULIN RATIO 1.1 (1.0-2.7); ANION GAP 14 (5-15); ASPARTATE AMINO TRANSFERASE 27 U/L (5-40); CALCIUM 10.2 mg/dL (8.6-10.2); CARBON DIOXIDE 28 mEQ/L (20-30); CHLORIDE 93 mEQ/L (98-107); CREATININE 1.1 mg/dL (0.5-0.9); CRP QUANT 2.5 mg/dL (< 0.5); HEMOLYSIS 5; MAGNESIUM 1.7 mg/dL (1.7-2.5); PHOSPHORUS 3.6 mg/dL (2.5-4.8); POTASSIUM 4.2 mEQ/L (3.4-4.9); SODIUM 135 mEQ/L (135-145); TOTAL PROTEIN 7.2 g/dL (6.6-8.7); URIC ACID 6.5 mg/dL (3.0-7.5)
[2016-07-03] MEDS: Magnesium Oxide 400mg tab ORAL SCH ×3 (09:00→18:50)
[2016-07-03] MEDS: Heparin 5000 units/ml inj SUBQ SCH (09:00)
[2016-07-03] MEDS: Phenytoin 100mg cap ORAL SCH (09:00)
[2016-07-03] MEDS: Allopurinol 100mg Tab ORAL SCH (10:16)
--- NOTE | 2016-07-03 10:57 | General Progress Note ---
Assessment/Plan Status: stable Assessment/Plan status: Renal failure and hyperkalemia due to pre renal azotemia IMPROVED ? Lotesin induced HyperKalemia Hydrate- on Norvasc, will increase the dose and add lopressor for better BP control Monitor renal parameters- Avoid Nephrotoxics- Subjective ROS Limited/Unobtainable: No Constitutional: Reports: malaise Allergies: Coded Allergies: NO KNOWN ALLERGIES (Unverified Allergy, Unknown, 04/20/15) Objective Last 24 Hour Vital Signs Date Time Temp Pulse Resp B/P Pulse Ox O2 Delivery O2 Flow Rate FiO2 07/03/16 10:17 91 168/85 07/03/16 08:00 97.4 91 20 168/85 98 Room Air 07/03/16 04:19 97.9 92 20 146/76 95 Room Air 07/02/16 23:46 97.9 82 19 165/78 95 Room Air 07/02/16 22:01 97.9 07/02/16 20:00 97.9 80 20 157/81 92 Room Air 07/02/16 19:07 81 142/76 07/02/16 16:00 97.9 81 22 142/76 96 Room Air 07/02/16 15:26 96.3 07/02/16 12:00 96.8 84 20 141/71 98 Room Air Intake and Output 07/02/16 07/03/16 19:00 07:00 Intake Total 240 ml 420 ml Output Total 250 ml Balance 240 ml 170 ml Intake Oral 240 ml 420 ml Output Urine Total 250 ml Laboratory Tests 07/03/16 04:35: White Blood Count 4.6L, Red Blood Count 3.65L, Hemoglobin 12.1, Hematocrit 36.4L , Mean Corpuscular Volume 100H, Mean Corpuscular Hemoglobin 33.1H, Mean Corpuscular Hemoglobin Concent 33.2, Red Cell Distribution Width 12.1, Platelet Count 169, Mean Platelet Volume 7.6, Neutrophils (%) (Auto) 50.9, Lymphocytes (% ) (Auto) 32.8, Monocytes (%) (Auto) 13.2H, Eosinophils (%) (Auto) 2.4, Basophils (%) (Auto) 0.7, Sodium Level 135, Potassium Level 4.2, Chloride Level 93L, Carbon Dioxide Level 28, Anion Gap 14, Blood Urea Nitrogen 21, Creatinine 1.1H, Estimat Glomerular Filtration Rate , Glucose Level 126H, Uric Acid 6.5, Calcium Level 10.2, Phosphorus Level 3.6, Magnesium Level 1.7, Total Bilirubin 0.5, Gamma Glutamyl Transpeptidase 209H, Aspartate Amino Transf (AST/SGOT) 27, Alanine Aminotransferase (ALT/SGPT) 21, Alkaline Phosphatase 118H, Total Creatine Kinase 58, Troponin I < 0.30, C-Reactive Protein, Quantitative 2.5H, Pro-B-Type Natriuretic Peptide 84, Total Protein 7.2, Albumin 3.9, Globulin 3.3 , Albumin/Globulin Ratio 1.1 Height (Feet): 5 Height (Inches): 9.00 Weight (Pounds): 230 General Appearance: no apparent distress Objective other PE not changed- no signs of CHF EDSON MOODY Jul 03, 2016 10:57
[2016-07-03 11:46] VITALS: BP 162/85
[2016-07-03] MEDS ORDERED: Metoprolol 25mg tab ORAL ONE (12:00)
[2016-07-03 16:00] VITALS: BP 156/77
--- NOTE | 2016-07-03 16:22 | Pulmonology Progress Note ---
Assessment/Plan Assessment/Plan Assessment 1. Right humoral Fx non displaced w/ Right shoulder pain. 2. Left knee pain. 3. Left leg weakness. 4. Radiculopathy. 5. Renal insufficiency. 6. Hypertension. 7. Mechanical fall. 8. Coronary artery disease. 9. Seizure disorder. Plan Orthopedic to follow Continue to stabilize with sling Tolerating Feeding Pain management Fall Precautions Subjective ROS Limited/Unobtainable: No Musculoskeletal: Reports: pain, stiffness, swelling Allergies: Coded Allergies: NO KNOWN ALLERGIES (Unverified Allergy, Unknown, 04/20/15) Objective Last 24 Hour Vital Signs Date Time Temp Pulse Resp B/P Pulse Ox O2 Delivery O2 Flow Rate FiO2 07/03/16 11:57 162/85 07/03/16 11:53 91 162/85 07/03/16 11:46 97.7 91 18 162/85 95 Room Air 07/03/16 10:17 91 168/85 07/03/16 08:00 97.4 91 20 168/85 98 Room Air 07/03/16 04:19 97.9 92 20 146/76 95 Room Air 07/02/16 23:46 97.9 82 19 165/78 95 Room Air 07/02/16 22:01 97.9 07/02/16 20:00 97.9 80 20 157/81 92 Room Air 07/02/16 19:07 81 142/76 Intake and Output 07/02/16 07/03/16 19:00 07:00 Intake Total 240 ml 420 ml Output Total 250 ml Balance 240 ml 170 ml Intake Oral 240 ml 420 ml Output Urine Total 250 ml General Appearance: no acute distress HEENT: normocephalic, atraumatic, PERRL Respiratory/Chest: chest wall non-tender, decreased breath sounds, accessory muscle use Breasts: no masses Cardiovascular: normal peripheral pulses, normal rate, regular rhythm, no JVD Abdomen: normal bowel sounds, soft, non tender, no organomegaly Genitourinary: normal external genitalia Extremities: no cyanosis, other - Right arm sling for stabilization s/p fracture non displaced Skin: no rash Neurologic/Psychiatric: osteologist II-XII grossly normal, no motor/sensory deficits Laboratory Tests 07/03/16 04:35: White Blood Count 4.6L, Red Blood Count 3.65L, Hemoglobin 12.1, Hematocrit 36.4L , Mean Corpuscular Volume 100H, Mean Corpuscular Hemoglobin 33.1H, Mean Corpuscular Hemoglobin Concent 33.2, Red Cell Distribution Width 12.1, Platelet Count 169, Mean Platelet Volume 7.6, Neutrophils (%) (Auto) 50.9, Lymphocytes (% ) (Auto) 32.8, Monocytes (%) (Auto) 13.2H, Eosinophils (%) (Auto) 2.4, Basophils (%) (Auto) 0.7, Sodium Level 135, Potassium Level 4.2, Chloride Level 93L, Carbon Dioxide Level 28, Anion Gap 14, Blood Urea Nitrogen 21, Creatinine 1.1H, Estimat Glomerular Filtration Rate , Glucose Level 126H, Uric Acid 6.5, Calcium Level 10.2, Phosphorus Level 3.6, Magnesium Level 1.7, Total Bilirubin 0.5, Gamma Glutamyl Transpeptidase 209H, Aspartate Amino Transf (AST/SGOT) 27, Alanine Aminotransferase (ALT/SGPT) 21, Alkaline Phosphatase 118H, Total Creatine Kinase 58, Troponin I < 0.30, C-Reactive Protein, Quantitative 2.5H, Pro-B-Type Natriuretic Peptide 84, Total Protein 7.2, Albumin 3.9, Globulin 3.3 , Albumin/Globulin Ratio 1.1 Current Medications Medications (Trade) Dose Ordered Sig/Ingrid Route PRN Reason Start Time Stop Time Status Last Admin Dose Admin Acetaminophen (Tylenol) 650 mg Q4H PRN ORAL fever 06/30/16 22:00 07/30/16 21:59 07/02/16 14:27 Acetaminophen/ Hydrocodone Bitart ([place] 5/325) 1 tab Q4H PRN ORAL For Pain 06/30/16 22:00 07/07/16 21:59 07/03/16 11:57 Albuterol/ Ipratropium (DuoNeb 0.5-3(2.5)mg/3ml) 3 ml Q4H PRN HHN Shortness of Breath 06/30/16 22:00 07/05/16 21:59 Allopurinol (Zyloprim) 200 mg DAILY ORAL 07/02/16 12:30 08/01/16 12:29 07/03/16 10:16 Amlodipine Besylate (Norvasc) 5 mg BID ORAL 07/03/16 18:00 08/02/16 17:59 Clonidine HCl (Catapres) 0.1 mg Q4H PRN ORAL For High Blood Pressure 06/30/16 22:00 07/30/16 21:59 07/03/16 11:57 Clopidogrel Bisulfate (Plavix) 75 mg DAILY ORAL 07/01/16 09:00 07/31/16 08:59 07/03/16 10:16 Dextrose (Dextrose 50%) STAT PRN IV Hypoglycemia 06/30/16 22:00 07/30/16 21:59 Heparin Sodium (Porcine) (Heparin 5000 units/ml) 5,000 units EVERY 12 HOURS SUBQ 07/01/16 09:00 07/31/16 08:59 07/02/16 21:33 Lorazepam (Ativan 2mg/ml 1ml) 0.5 mg Q4H PRN IV For Anxiety 06/30/16 22:00 07/07/16 21:59 Magnesium Oxide (Mag-Ox 400mg) 400 mg THREE TIMES A DAY ORAL 07/02/16 13:00 08/01/16 12:59 07/03/16 14:19 Metoprolol Tartrate (Lopressor) 25 mg Q12HR ORAL 07/03/16 21:00 08/02/16 20:59 Morphine Sulfate (Morphine Sulfate) 1 mg Q4H PRN IVP For Pain 7-10 06/30/16 22:00 07/07/16 21:59 07/03/16 14:32 Nitroglycerin (Ntg) 0.4 mg Q5M X 3 DOSES PRN SL Prn Chest Pain 06/30/16 22:00 07/30/16 21:59 Ondansetron HCl (Zofran) 4 mg Q6H PRN IVP Nausea & Vomiting 06/30/16 22:00 07/30/16 21:59 07/03/16 10:44 Pantoprazole (Protonix) 40 mg DAILY ORAL 07/01/16 16:00 07/31/16 15:59 07/03/16 10:23 Phenytoin (Dilantin) 200 mg EVERY 12 HOURS ORAL 07/01/16 13:15 07/31/16 13:14 07/03/16 09:00 Polyethylene Glycol (Miralax) 17 gm HSPRN PRN ORAL Constipation 06/30/16 22:00 07/30/16 21:59 07/01/16 14:25 Temazepam (Restoril) 15 mg HSPRN PRN ORAL Insomnia 06/30/16 22:00 07/07/16 21:59 07/01/16 23:58 DORIS JOAQUIN Jul 03, 2016 16:22
--- NOTE | 2016-07-03 17:11 | Internal Med Progress Note ---
Subjective Date of Service: Jul 03, 2016 Physician Name Becki Salinas Attending Physician Joe Lee MD Current Medications Medications (Trade) Dose Ordered Sig/Ingrid Route PRN Reason Start Time Stop Time Status Last Admin Dose Admin Acetaminophen (Tylenol) 650 mg Q4H PRN ORAL fever 06/30/16 22:00 07/30/16 21:59 07/02/16 14:27 Acetaminophen/ Hydrocodone Bitart ([place] 5/325) 1 tab Q4H PRN ORAL For Pain 06/30/16 22:00 07/07/16 21:59 07/03/16 11:57 Albuterol/ Ipratropium (DuoNeb 0.5-3(2.5)mg/3ml) 3 ml Q4H PRN HHN Shortness of Breath 06/30/16 22:00 07/05/16 21:59 Allopurinol (Zyloprim) 200 mg DAILY ORAL 07/02/16 12:30 08/01/16 12:29 07/03/16 10:16 Amlodipine Besylate (Norvasc) 5 mg BID ORAL 07/03/16 18:00 08/02/16 17:59 Clonidine HCl (Catapres) 0.1 mg Q4H PRN ORAL For High Blood Pressure 06/30/16 22:00 07/30/16 21:59 07/03/16 11:57 Clopidogrel Bisulfate (Plavix) 75 mg DAILY ORAL 07/01/16 09:00 07/31/16 08:59 07/03/16 10:16 Dextrose (Dextrose 50%) STAT PRN IV Hypoglycemia 06/30/16 22:00 07/30/16 21:59 Heparin Sodium (Porcine) (Heparin 5000 units/ml) 5,000 units EVERY 12 HOURS SUBQ 07/01/16 09:00 07/31/16 08:59 07/02/16 21:33 Lorazepam (Ativan 2mg/ml 1ml) 0.5 mg Q4H PRN IV For Anxiety 06/30/16 22:00 07/07/16 21:59 Magnesium Oxide (Mag-Ox 400mg) 400 mg THREE TIMES A DAY ORAL 07/02/16 13:00 08/01/16 12:59 07/03/16 14:19 Metoprolol Tartrate (Lopressor) 25 mg Q12HR ORAL 07/03/16 21:00 08/02/16 20:59 Morphine Sulfate (Morphine Sulfate) 1 mg Q4H PRN IVP For Pain 7-10 06/30/16 22:00 07/07/16 21:59 07/03/16 14:32 Nitroglycerin (Ntg) 0.4 mg Q5M X 3 DOSES PRN SL Prn Chest Pain 06/30/16 22:00 07/30/16 21:59 Ondansetron HCl (Zofran) 4 mg Q6H PRN IVP Nausea & Vomiting 06/30/16 22:00 07/30/16 21:59 07/03/16 10:44 Pantoprazole (Protonix) 40 mg DAILY ORAL 07/01/16 16:00 07/31/16 15:59 07/03/16 10:23 Phenytoin (Dilantin) 200 mg EVERY 12 HOURS ORAL 07/01/16 13:15 07/31/16 13:14 07/03/16 09:00 Polyethylene Glycol (Miralax) 17 gm HSPRN PRN ORAL Constipation 06/30/16 22:00 07/30/16 21:59 07/01/16 14:25 Temazepam (Restoril) 15 mg HSPRN PRN ORAL Insomnia 06/30/16 22:00 07/07/16 21:59 07/01/16 23:58 Allergies: Coded Allergies: NO KNOWN ALLERGIES (Unverified Allergy, Unknown, 04/20/15) ROS Limited/Unobtainable: No Constitutional: Reports: no symptoms HEENT: Reports: no symptoms Cardiovascular: Reports: no symptoms Respiratory: Reports: no symptoms Gastrointestinal/Abdominal: Reports: no symptoms Genitourinary: Reports: no symptoms Subjective 76 YO F admitted for left leg weakness and mechanical fall. Now right humerus fracture. Cover for Int Felix-Dr Lee. C/O right shoulder pain and left knee pain Objective Last Vital Signs Date Time Temp Pulse Resp B/P Pulse Ox O2 Delivery O2 Flow Rate FiO2 07/03/16 16:00 98.2 74 18 156/77 97 Room Air Laboratory Tests Test 07/03/16 04:35 White Blood Count 4.6 K/UL (4.8-10.8) L Red Blood Count 3.65 M/UL (4.20-5.40) L Hemoglobin 12.1 G/DL (12.0-16.0) Hematocrit 36.4 % (37.0-47.0) L Mean Corpuscular Volume 100 FL (80-99) H Mean Corpuscular Hemoglobin 33.1 PG (27.0-31.0) H Mean Corpuscular Hemoglobin Concent 33.2 G/DL (32.0-36.0) Red Cell Distribution Width 12.1 % (11.6-14.8) Platelet Count 169 K/UL (150-450) Mean Platelet Volume 7.6 FL (6.5-10.1) Neutrophils (%) (Auto) 50.9 % (45.0-75.0) Lymphocytes (%) (Auto) 32.8 % (20.0-45.0) Monocytes (%) (Auto) 13.2 % (1.0-10.0) H Eosinophils (%) (Auto) 2.4 % (0.0-3.0) Basophils (%) (Auto) 0.7 % (0.0-2.0) Sodium Level 135 mEQ/L (135-145) Potassium Level 4.2 mEQ/L (3.4-4.9) Chloride Level 93 mEQ/L (98-107) L Carbon Dioxide Level 28 mEQ/L (20-30) Anion Gap 14 (5-15) Blood Urea Nitrogen 21 mg/dL (7-23) Creatinine 1.1 mg/dL (0.5-0.9) H Estimat Glomerular Filtration Rate mL/min (>60) Glucose Level 126 mg/dL (74-106) H Uric Acid 6.5 mg/dL (3.0-7.5) Calcium Level 10.2 mg/dL (8.6-10.2) Phosphorus Level 3.6 mg/dL (2.5-4.8) Magnesium Level 1.7 mg/dL (1.7-2.5) Total Bilirubin 0.5 mg/dL (0.0-1.2) Gamma Glutamyl Transpeptidase 209 U/L (5-36) H Aspartate Amino Transf (AST/SGOT) 27 U/L (5-40) Alanine Aminotransferase (ALT/SGPT) 21 U/L (3-33) Alkaline Phosphatase 118 U/L (35-104) H Total Creatine Kinase 58 U/L (26-140) Troponin I < 0.30 ng/mL (<=0.30) C-Reactive Protein, Quantitative 2.5 mg/dL (< 0.5) H Pro-B-Type Natriuretic Peptide 84 pg/mL (0-450) Total Protein 7.2 g/dL (6.6-8.7) Albumin 3.9 g/dL (3.5-5.2) Globulin 3.3 g/dL Albumin/Globulin Ratio 1.1 (1.0-2.7) Intake and Output 07/02/16 07/03/16 19:00 07:00 Intake Total 240 ml 420 ml Output Total 250 ml Balance 240 ml 170 ml Intake Oral 240 ml 420 ml Output Urine Total 250 ml Objective General Appearance: WD/WN, no apparent distress, alert EENT: PERRL/EOMI, normal ENT inspection Neck: non-tender, normal alignment, supple Cardiovascular: normal peripheral pulses, normal rate, regular rhythm, no gallop/murmur, no JVD Respiratory/Chest: chest wall non-tender, lungs clear, normal breath sounds, no respiratory distress, no accessory muscle use Abdomen: normal bowel sounds, non tender, soft, no organomegaly, no mass Extremities: other - right shoulder sling 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 See ortho note. Non surgical. Cont shoulder sling. (2) Left leg weakness (3) Left knee pain Assessment & Plan: Osteoarthritis per xray report. (4) Renal insufficiency (5) HTN (hypertension) Assessment & Plan: Cont norvasc. (6) CAD (coronary artery disease) (7) Seizure disorder Assessment & Plan: See neuro note. Cont dilantin (8) Spondylolisthesis of lumbar region Status: progressing Assessment/Plan Discharge planning - home health BECKI SALINAS Jul 03, 2016 17:11
--- NOTE | 2016-07-03 17:43 | Discharge Summary ---
Discharge Summary Hospital Course Date of Admission Jun 30, 2016 at 20:43 Date of Discharge Admitting Diagnosis weakness HPI Marissa Tate is a 76 year old female who was admitted on Jun 30, 2016 at 20: 43 for Weakness Hospital Course Dictated for Int Med-Dr Lee no. [id number]. Discharge Discharge Disposition Patient was discharged to Discharge Diagnoses: BECKI SALINAS Jul 03, 2016 17:43
[2016-07-03 18:50] VITALS: BP 156/77
[2016-07-03] MEDS ORDERED: Metoprolol 25mg tab ORAL SCH (21:00)
--- NOTE | 2016-07-04 23:08 | Discharge Summary ---
DATE OF ADMISSION: 06/30/2016 DATE OF DISCHARGE: 07/03/2016 ADMITTING DIAGNOSES: 1. Right shoulder pain. 2. Left knee pain. 3. Left leg weakness. 4. Radiculopathy. 5. Renal insufficiency. 6. Hypertension. 7. Mechanical fall. 8. Coronary artery disease. 9. Seizure disorder. DISCHARGE DIAGNOSES: 1. Right humerus fracture. 2. Right shoulder pain. 3. Left leg pain. 4. Left knee pain. 5. Left leg weakness. 6. Radiculopathy of the left leg. 7. Hypertension. 8. Renal insufficiency. 9. Mechanical fall. 10. Coronary artery disease. 11. Seizure disorder. HOSPITAL COURSE: 1. Right humerus fracture. Orthopedic consultation was obtained with Dr. Lincoln Keen. The patient was placed in a sling. The initial shoulder x-ray showed nondisplaced fracture of the right humeral head, this was nonsurgical according to Dr. Lincoln Keen. The patient is to follow up with Dr. Keen in two weeks. 2. Left leg weakness/left knee pain. An x-ray of the left knee revealed osteoarthritis. The patient will follow up with Dr. Lincoln Keen in one week. 3. Renal insufficiency. The patient received intravenous fluids during the hospitalization. Renal insufficiency is now resolved. 4. Hypertension. The patient remained on metoprolol one tablet p.o. daily. This was increased to metoprolol 25 mg q.12 hours, Norvasc was added 5 mg twice daily. The patient is to continue this as an outpatient. 5. Mechanical fall. 6. Coronary artery disease. The patient remained on Plavix 75 mg one tablet p.o. daily. The patient is to continue this as an outpatient. 7. Seizure disorder. The patient is currently on Dilantin 200 mg one tablet p.o. twice daily. The patient is to continue this as an outpatient. DISCHARGE MEDICATIONS: Please refer to discharge medication list. DISCHARGE INSTRUCTIONS: 1. The patient is to follow up with Dr. Lincoln Keen in two weeks. 2. The patient is follow up with her primary care physician, in two weeks. Brandt Lubin M.D. DR: Marimar JOB#: [id number] CC:
--- NOTE | 2016-07-10 17:26 | Diagnostic Imaging Report ---
APPROVED REPORT CPT Code: 01981 Vascular Symptoms CVA/TIA: Doppler Spectral Velocity Analysis RightLeft BILATERAL: CCA - Imaging reveals no significant plaque in the right and left common external carotid arteries. The Doppler signal indicates the degree of stenosis is minimal (10% - 20%) in the internal and external carotid arteries. VERTEBRAL- The vertebral arteries are patent without evidence of stenosis or steal.
== END 2016-07-03 19:30 | disposition home or self-care (01) | DRG 563 ==
LOC: EDBD 19:20 → EMR 20:25 → 4W 20:43 → EDBEDREQ 21:02 → 4W 07-01 07:54
DX: S42.294A Other nondisplaced fracture of upper end of right humerus, initial encounter for closed fracture (principal); E87.5 Hyperkalemia; N19 Unspecified kidney failure; G40.909 Epilepsy, unspecified, not intractable, without status epilepticus; W01.0XXA Fall on same level from slipping, tripping and stumbling without subsequent striking against object, initial encounter; E66.9 Obesity, unspecified; I10 Essential (primary) hypertension; Z86.718 Personal history of other venous thrombosis and embolism; Z85.3 Personal history of malignant neoplasm of breast; Z90.12 Acquired absence of left breast and nipple; Z79.02 Long term (current) use of antithrombotics/antiplatelets; Z79.01 Long term (current) use of anticoagulants; M25.511 Pain in right shoulder; I25.10 Atherosclerotic heart disease of native coronary artery without angina pectoris; M17.12 Unilateral primary osteoarthritis, left knee; I44.0 Atrioventricular block, first degree; I25.2 Old myocardial infarction; M43.16 Spondylolisthesis, lumbar region
CPT/HCPCS: 36415; 71010; 72148; 80053; 80061; 80185; 82550; 82553; 82977; 83036; 83735; 83880; 84100; 84443; 84484; 84550; 85025; 85610; 85730; 86140; 93005; 93306; 93880; J2405